=== PATIENT | male | born 1995 | race African-American/Black ===

== ENCOUNTER 2021-04-17 12:42 | Emergency (ER) | payer OTHER ==
[~2021-04-17] VITALS: Ht 188 cm; Wt 83.9 kg
[2021-04-17 12:53] VITALS: BP 116/79
--- NOTE | 2021-04-17 13:53 | NUR ---
PT ELOPED. LEFT WITHOUT BEING SEEN BY ED PROVIDER.
== END 2021-04-17 13:55 | disposition left against medical advice (07) ==
LOC: ER 12:52
DX: Z53.21 Procedure and treatment not carried out due to patient leaving prior to being seen by health care provider (principal)